=== PATIENT | female | born 1960 | race Caucasian/White ===

== ENCOUNTER 2021-10-16 11:00 | Emergency (ER) | payer BC ==
[2021-10-16] MEDS ORDERED: DIPHTH,PERTUSS(ACELL),TET 0.5 ML DISP.SYRIN IM ONE ×2 (11:16→11:21)
[2021-10-16 11:18] VITALS: BP 131/64; PULSE 82; TEMP 98.1; BMI 17.9
== END 2021-10-16 13:05 | disposition home or self-care (01) ==
LOC: FER 11:00 → SUPCPDRO 11:00 → FER 13:05
PROC: 3E0234Z Introduction of Serum, Toxoid and Vaccine into Muscle, Percutaneous Approach (ICD-10-PCS; principal; 2021-10-16)
DX: S29.9XXA Unspecified injury of thorax, initial encounter (principal); W01.0XXA Fall on same level from slipping, tripping and stumbling without subsequent striking against object, initial encounter
CPT/HCPCS: 70450-TC; 71250-TC; 72125-TC; 90715; 99285-25

== ENCOUNTER 2023-06-13 15:01 | Emergency (ER) | payer OTHER, BC ==
[2023-06-13 15:17] VITALS: BP 136/80; PULSE 58; RESP 16; TEMP 98; BMI 20.9
[2023-06-13] MEDS ORDERED: LIDOCAINE HCL 2% (20ML MULTI-DOSE VIAL) ONE (15:32)
[2023-06-13] MEDS: LIDOCAINE HCL 2% (50ML VIAL) SNB ONE (15:36)
== END 2023-06-13 16:32 | disposition home or self-care (01) ==
LOC: FER 15:01
PROC: 09C37ZZ Extirpation of Matter from Right External Auditory Canal, Via Natural or Artificial Opening (ICD-10-PCS; principal; 2023-06-13)
DX: S00.451A Superficial foreign body of right ear, initial encounter (principal); W45.8XXA Other foreign body or object entering through skin, initial encounter
CPT/HCPCS: 99283-25